=== PATIENT | male | born 2000 | race African-American/Black ===

== ENCOUNTER 2023-01-16 20:28 | Emergency (ER) | payer SELFPAY ==
[~2023-01-16] VITALS: Ht 177.8 cm; Wt 64.3 kg
[2023-01-16 21:03] VITALS: BP 132/82; PULSE 78; RESP 14; TEMP 98.9; O2SAT 100
[2023-01-16 21:27] LABS: BASOPHILS % 0.4 % (0.0-2.0); EOSINOPHILS % 0.2 % (0.0-5.0); HEMATOCRIT. 45.7 % (42.0-52.0); LYMPHOCYTES % 19.3 % (20.0-50.0); MEAN CORPUSCULAR HEMOGLOBIN 26.7 pg (28.0-32.0); MEAN CORPUSCULAR HGB CONC 32.9 g/dL (31.0-37.0); MEAN CORPUSCULAR VOLUME 81.2 fL (80.0-94.0); MEAN PLATELET VOLUME 10.6 fl (7.4-10.4); MONOCYTES % 6.5 % (2.0-8.0); NEUTROPHILS % 73.6 % (40.0-76.0); PLATELET 156 x1000/uL (130-400); RED BLOOD CELL COUNT 5.63 mill/uL (4.7-6.1); RED CELL DISTRIBUTION WIDTH 13.7 % (11.6-14.6)
[2023-01-16 21:31] LABS: CLARITY URINE CLEAR (CLEAR); COLOR URINE DARK YELLOW (YELLOW); GLUCOSE URINE NEGATIVE (NEGATIVE); KETONES URINE 1+ (NEGATIVE); LEUKOCYTE ESTERASE URINE TRACE (NEGATIVE); NITRITE URINE NEGATIVE (NEGATIVE); OCCULT BLOOD URINE NEGATIVE (NEGATIVE); PH URINE 5.5 (4.5-8.0); PROTEIN URINE 2+ (NEGATIVE); SPECIFIC GRAVITY URINE 1.035 (1.005-1.030)
[2023-01-16 21:32] LABS: CHLORIDE 101 mEq/L (98-107); INDEX HEMOLYSI 1 (1-3); INDEX ICTERIC 1 (1-4); INDEX LIPEMIC 1 (1-3); POTASSIUM 3.8 mEq/L (3.5-5.1); SODIUM 136 mEq/L (136-145)
[2023-01-16 21:46] LABS: ALANINE AMINOTRANSFERASE 27 IU/L (13-61); ALBUMIN 4.7 g/dL (3.4-5.0); ASPARTATE AMINOTRANSFERASE 29 IU/L (15-37); BILIRUBIN TOTAL 0.9 mg/dL (0.1-1.0); CALCIUM 9.7 mg/dL (8.5-10.1); CARBON DIOXIDE 26 mEq/L (21-32); CREATININE 1.1 mg/dL (0.6-1.3); GLUCOSE 110 mg/dL (70-105); PROTEIN TOTAL 8.9 g/dL (6.0-8.3); UREA NITROGEN BLOOD 14 mg/dL (7-21)
[2023-01-16 21:50] LABS: RBC URINE 0-2 /hpf (0-2); SQUAMOUS EPITHELIAL CELL URINE NONE SEEN /lpf (RARE/1+)
[2023-01-16 21:51] LABS: BACTERIA URINE 1+; MUCUS URINE TRACE /lpf (NONE/TRACE); YEAST URINE NONE SEEN
[2023-01-17] MEDS ORDERED: METOCLOPRAMIDE HCL 10MG/2ML VIAL IV STA (01:26)
== END 2023-01-17 02:00 | disposition left against medical advice (07) ==
LOC: ER 20:28
DX: R10.13 Epigastric pain (principal); R11.10 Vomiting, unspecified; F12.10 Cannabis abuse, uncomplicated
CPT/HCPCS: 80053; 81003; 83690; 85025; 87086; 36415; 99285; 76700; 96374; J2765; Z7610 ×3

== ENCOUNTER 2023-06-21 01:38 | Emergency (ER) | payer SELFPAY ==
[~2023-06-21] VITALS: Ht 177.8 cm; Wt 70.6 kg
[2023-06-21 01:50] VITALS: BP 115/79; RESP 18; TEMP 99.9; O2SAT 98
[2023-06-21 02:09] VITALS: PULSE 86
[2023-06-22] MEDS ORDERED: ONDA4TAB50 MT (21:26)
== END 2023-06-21 04:35 | disposition left against medical advice (07) ==
LOC: ER 01:38
DX: K92.0 Hematemesis (principal); Z53.21 Procedure and treatment not carried out due to patient leaving prior to being seen by health care provider
CPT/HCPCS: 99281

== ENCOUNTER 2023-06-22 13:08 | Emergency (ER) | payer SELFPAY ==
[~2023-06-22] VITALS: Ht 172.7 cm; Wt 69.0 kg
[2023-06-22 14:03] VITALS: BP 130/74; PULSE 70; RESP 16; TEMP 99; O2SAT 99
[2023-06-22 14:45] LABS: CLARITY URINE CLEAR (CLEAR); COLOR URINE YELLOW (YELLOW); GLUCOSE URINE NEGATIVE (NEGATIVE); KETONES URINE 2+ (NEGATIVE); LEUKOCYTE ESTERASE URINE NEGATIVE (NEGATIVE); NITRITE URINE NEGATIVE (NEGATIVE); OCCULT BLOOD URINE NEGATIVE (NEGATIVE); PH URINE 5.5 (4.5-8.0); PROTEIN URINE 2+ (NEGATIVE)
[2023-06-22 15:14] LABS: MUCUS URINE TRACE /lpf (NONE/TRACE); RBC URINE NONE SEEN /hpf (0-2); SQUAMOUS EPITHELIAL CELL URINE RARE /lpf (RARE/1+); WBC URINE 0-2 /hpf (0-2)
[2023-06-22 15:15] LABS: BACTERIA URINE TRACE
[2023-06-22 19:52] LABS: HEMOGLOBIN. 15.2 g/dL (14.0-18.0); MEAN CORPUSCULAR HEMOGLOBIN 26.4 pg (28.0-32.0); MEAN CORPUSCULAR HGB CONC 32.3 g/dL (31.0-37.0); MEAN CORPUSCULAR VOLUME 81.8 fL (80.0-94.0); MEAN PLATELET VOLUME 11.5 fl (7.4-10.4); PLATELET 157 x1000/uL (130-400); RED BLOOD CELL COUNT 5.75 mill/uL (4.7-6.1); RED CELL DISTRIBUTION WIDTH 13.5 % (11.6-14.6); WHITE BLOOD COUNT 7.1 x1000/uL (4.5-11.0)
[2023-06-22] MEDS ORDERED: ONDANSETRON 4MG ODT PO ONE (20:00)
[2023-06-22] MEDS ORDERED: KETOROLAC 15MG/ML VIAL IM ONE (20:00)
[2023-06-22 20:04] LABS: ALANINE AMINOTRANSFERASE 19 IU/L (10-49); ALBUMIN 4.9 g/dL (3.2-4.8); ASPARTATE AMINOTRANSFERASE 36 IU/L (<34); BILIRUBIN TOTAL 0.6 mg/dL (0.1-1.0); CALCIUM 9.5 mg/dL (8.7-10.4); CARBON DIOXIDE 25 mEq/L (21-32); CHLORIDE 98 mEq/L (98-107); CREATININE 0.9 mg/dL (0.6-1.3); GLUCOSE 87 mg/dL (70-105); POTASSIUM 3.6 mEq/L (3.5-5.1); PROTEIN TOTAL 8.4 g/dL (6.0-8.3); SODIUM 133 mEq/L (136-145); UREA NITROGEN BLOOD 17 mg/dL (9-23)
[2023-06-22 20:09] LABS: DIFFERENTIAL COMMENT 1
[2023-06-22 20:21] LABS: PLATELET ESTIMATE NORMAL
[2023-06-22] MEDS ORDERED: ONDA4TAB50 MT (21:26)
== END 2023-06-22 21:45 | disposition home or self-care (01) ==
LOC: ER 13:18
DX: K29.20 Alcoholic gastritis without bleeding (principal); F12.10 Cannabis abuse, uncomplicated
CPT/HCPCS: 99285; 76705; 80053; 81003; 83690; 85025; 36415; 96372; Q0162; J1885

== ENCOUNTER 2023-10-22 13:04 | Emergency (ER) | payer SELFPAY ==
[~2023-10-22] VITALS: Ht 175.3 cm; Wt 75.0 kg
[~2023-10-22 13:04] MED LIST: ONDA4TAB50 MT
[2023-10-22 13:20] VITALS: BP 123/73; PULSE 63; RESP 18; TEMP 99; O2SAT 97
[2023-10-22 13:57] LABS: BASOPHILS % 0.3 % (0.0-2.0); DIFFERENTIAL COMMENT 0; EOSINOPHILS % 0.1 % (0.0-5.0); HEMATOCRIT. 45.9 % (42.0-52.0); HEMOGLOBIN. 15.2 g/dL (14.0-18.0); LYMPHOCYTES % 12.9 % (20.0-50.0); MEAN CORPUSCULAR HGB CONC 33.1 g/dL (31.0-37.0); MEAN CORPUSCULAR VOLUME 81.7 fL (80.0-94.0); MONOCYTES % 4.8 % (2.0-8.0); NEUTROPHILS % 81.9 % (40.0-76.0); PLATELET 189 x1000/uL (130-400); RED BLOOD CELL COUNT 5.62 mill/uL (4.7-6.1); RED CELL DISTRIBUTION WIDTH 13.2 % (11.6-14.6); WHITE BLOOD COUNT 14.1 x1000/uL (4.5-11.0)
[2023-10-22 14:03] LABS: CHLORIDE 101 mEq/L (98-107); POTASSIUM 4.2 mEq/L (3.5-5.1); SODIUM 139 mEq/L (136-145)
[2023-10-22 14:04] LABS: CALCIUM 10.9 mg/dL (8.7-10.4); CARBON DIOXIDE 28 mEq/L (21-32)
[2023-10-22 14:09] LABS: CREATININE 1.2 mg/dL (0.6-1.3); GLUCOSE 98 mg/dL (70-105); UREA NITROGEN BLOOD 14 mg/dL (9-23)
[2023-10-22 14:11] LABS: ALANINE AMINOTRANSFERASE 10 IU/L (10-49); ALBUMIN 5.1 g/dL (3.2-4.8); ASPARTATE AMINOTRANSFERASE 26 IU/L (<34); BILIRUBIN DIRECT 0.3 mg/dL (<=3.0)
[2023-10-22 14:12] LABS: PROTEIN TOTAL 8.1 g/dL (6.0-8.3)
[2023-10-22] MEDS: MAGNESIUM/ALUMINUM HYDROXIDE/SIMETHICONE 30ML UDC PO NR (15:05)
[2023-10-22] MEDS: SODIUM CHLORIDE 0.9% 1,000 ML IV ONE (15:15)
[2023-10-22] MEDS: MORPHINE SULFATE 4 MG/ML INJ (FOR IV/IM USE) IV NR (17:15)
[2023-10-22] MEDS: PANTOPRAZOLE SODIUM 40 MG/VIAL IV NR (17:15)
[2023-10-22] MEDS: ONDANSETRON HCL 4MG/2ML INJ IV NR (17:15)
[2023-10-22 18:27] LABS: CLARITY URINE CLEAR (CLEAR); COLOR URINE YELLOW (YELLOW); GLUCOSE URINE NEGATIVE (NEGATIVE); KETONES URINE 2+ (NEGATIVE); LEUKOCYTE ESTERASE URINE NEGATIVE (NEGATIVE); NITRITE URINE NEGATIVE (NEGATIVE); OCCULT BLOOD URINE NEGATIVE (NEGATIVE); PH URINE 6.5 (4.5-8.0); PROTEIN URINE TRACE (NEGATIVE); SPECIFIC GRAVITY URINE 1.085 (1.005-1.030)
[2023-10-22 18:37] LABS: BACTERIA URINE NONE SEEN; RBC URINE NONE SEEN /hpf (0-2); SQUAMOUS EPITHELIAL CELL URINE RARE /lpf (RARE/1+); WBC URINE 0-2 /hpf (0-2); YEAST URINE NONE SEEN
[2023-10-22] MEDS ORDERED: MAG-55 MT (20:04)
[2023-10-22] MEDS ORDERED: IOHEXOL-300 100 ML BOTTLE ONE (23:16)
== END 2023-10-22 20:25 | disposition home or self-care (01) ==
LOC: ER 13:04
DX: R10.9 Unspecified abdominal pain (principal); R11.2 Nausea with vomiting, unspecified; F12.10 Cannabis abuse, uncomplicated
CPT/HCPCS: 80076; 80048; 81003; 83690; 85025; 36415; 74177; 96361; 96374; 96375; 99285; Q9967; J2405; C9113; J2270; Z7610 ×3

== ENCOUNTER 2023-12-18 19:45 | Emergency (ER) | payer SELFPAY ==
[~2023-12-18] VITALS: Ht 175.3 cm; Wt 73.0 kg
[~2023-12-18 19:45] MED LIST changes: +MAG-55 MT
[2023-12-18 20:47] VITALS: BP 135/75; PULSE 66; RESP 18; TEMP 98.4; O2SAT 98
[2023-12-18] MEDS ORDERED: ONDANSETRON HCL 4MG/2ML INJ IV STA (22:01)
[2023-12-18] MEDS ORDERED: DICYCLOMINE HCL 10MG CAPSULE PO NR (22:01)
[2023-12-18] MEDS ORDERED: MAGNESIUM/ALUMINUM HYDROXIDE/SIMETHICONE 30ML UDC PO STA (22:01)
[2023-12-18] MEDS ORDERED: DICYCLOMINE 10 MG/5 ML ORAL SYR PO STA (22:01)
[2023-12-18] MEDS ORDERED: KETOROLAC 30MG/ML VIAL IV STA (22:01)
[2023-12-19] MEDS ORDERED: MAG355OR21 MT (23:15)
[2023-12-19] MEDS ORDERED: FAMO-135 MT (23:15)
== END 2023-12-18 23:45 | disposition left against medical advice (07) ==
LOC: ER 19:45
DX: R10.9 Unspecified abdominal pain (principal); Z53.21 Procedure and treatment not carried out due to patient leaving prior to being seen by health care provider

== ENCOUNTER 2023-12-19 20:41 | Emergency (ER) | payer SELFPAY ==
[~2023-12-19] VITALS: Ht 180.3 cm; Wt 73.0 kg
[2023-12-19 20:45] VITALS: BP 144/77; PULSE 66; RESP 16; TEMP 98.3; O2SAT 100
[2023-12-19 21:05] LABS: BASOPHILS % 0.2 % (0.0-2.0); EOSINOPHILS % 1.6 % (0.0-5.0); HEMATOCRIT. 42.7 % (42.0-52.0); LYMPHOCYTES % 15.7 % (20.0-50.0); MEAN CORPUSCULAR HEMOGLOBIN 27.2 pg (28.0-32.0); MEAN CORPUSCULAR HGB CONC 32.7 g/dL (31.0-37.0); MEAN CORPUSCULAR VOLUME 83.1 fL (80.0-94.0); MONOCYTES % 5.7 % (2.0-8.0); NEUTROPHILS % 76.8 % (40.0-76.0); PLATELET 187 x1000/uL (130-400); RED BLOOD CELL COUNT 5.14 mill/uL (4.7-6.1); RED CELL DISTRIBUTION WIDTH 13.3 % (11.6-14.6); WHITE BLOOD COUNT 12.5 x1000/uL (4.5-11.0)
[2023-12-19 21:13] LABS: CHLORIDE 103 mEq/L (98-107); POTASSIUM 3.9 mEq/L (3.5-5.1); SODIUM 137 mEq/L (136-145)
[2023-12-19 21:14] LABS: CALCIUM 9.9 mg/dL (8.7-10.4); CARBON DIOXIDE 22 mEq/L (21-32)
[2023-12-19 21:19] LABS: CREATININE 1.1 mg/dL (0.6-1.3); GLUCOSE 81 mg/dL (70-105); UREA NITROGEN BLOOD 13 mg/dL (9-23)
[2023-12-19 21:21] LABS: ALANINE AMINOTRANSFERASE 10 IU/L (10-49); ASPARTATE AMINOTRANSFERASE 28 IU/L (<34); BILIRUBIN DIRECT 0.7 mg/dL (<=3.0); BILIRUBIN TOTAL 1.9 mg/dL (0.1-1.0); ETHANOL BLOOD < 10 mg/dL (<10)
[2023-12-19 21:22] LABS: PROTEIN TOTAL 7.9 g/dL (6.0-8.3)
[2023-12-19] MEDS: MAGNESIUM/ALUMINUM HYDROXIDE/SIMETHICONE 30ML UDC PO ONE (21:48)
[2023-12-19] MEDS: FAMOTIDINE 20MG TABLET PO ONE (21:48)
[2023-12-19] MEDS ORDERED: FAMO-135 MT (23:15)
[2023-12-19] MEDS ORDERED: MAG355OR21 MT (23:15)
== END 2023-12-20 00:13 | disposition home or self-care (01) ==
LOC: ER 20:41
DX: R10.13 Epigastric pain (principal); F12.90 Cannabis use, unspecified, uncomplicated
CPT/HCPCS: 36415; 76705; 80048; 80076; 80320; 85025; 99284; G0480